=== PATIENT | male | born 1950 | race Caucasian/White ===

== ENCOUNTER 2023-05-07 16:19 | Inpatient (IN) | payer OTHER ==
[~2023-05-07] VITALS: Ht 167.6 cm; Wt 63.5 kg
[2023-05-07] MEDS ORDERED: METRONIDAZOLE 500 MG/NS 100ML 100 ML IV ONE ×2 (16:30→16:46)
[2023-05-07] MEDS ORDERED: CEFTRIAXONE 1 G in IV DEXTROSE 5% 50 ML IV ONE (16:30)
[2023-05-07] MEDS ORDERED: IV NORMAL SALINE 1000 ML BAG IV ONE ×2 (16:30→18:15)
[2023-05-07] MEDS ORDERED: ACETAMINOPHEN ES 500 MG TABLET PO ONE (16:30)
[2023-05-07] MEDS ORDERED: CEFTRIAXONE /D5W 50ML IVPB **ER PYXIS IV ONE (16:31)
[2023-05-07] MEDS ORDERED: ACETAMINOPHEN ES 500 MG TABLET ONE (16:31)
[2023-05-07 16:54] LABS: *BLOOD, URINE 3+ (NEGATIVE); *COLOR,URINE DARK YELLOW (YELLOW); *KETONES,URINE NEGATIVE (NEGATIVE); *UROBILINOGEN,URINE 0.2 E.U./dl (NORMAL); LEUKOCYTE ESTERASE ,URINE 1+ (NEGATIVE); NITRITE, URINE NEGATIVE (NEGATIVE); PH,URINE 5.5 (5.0-8.0); UGLUCOSE NEGATIVE (NEGATIVE)
[2023-05-07 16:55] LABS: BASOPHILS % (AUTO) 0.4 % (0.0-2.0); DIFFERENTIAL COMMENT 0; EOSINOPHILS # (AUTO) 0.1 K/uL (0.0-0.7); EOSINOPHILS % (AUTO) 0.6 % (0.0-7.0); HEMATOCRIT 25.9 % (36.7-47.1); HEMOGLOBIN 8.4 g/dL (12.5-16.3); LYMPHOCYTES # (AUTO) 0.4 K/uL (0.8-4.8); LYMPHOCYTES % (AUTO) 3.5 % (20.5-51.5); MEAN CORPUSCULAR HEMOGLOBIN 29.8 uug (23.8-33.4); MEAN CORPUSCULAR HGB CONC 32 g/dL (32.5-36.3); MEAN CORPUSCULAR VOLUME 92.2 fL (73.0-96.2); MONOCYTES # (AUTO) 0.4 K/uL (0.1-1.30); MONOCYTES % (AUTO) 4.1 % (0.0-11.0); NEUTROPHILS % (AUTO) 91.4 % (38.5-71.5); PLATELET COUNT (AUTO) 235 K/uL (152-348); RED BLOOD CELL COUNT(AUTO) 2.81 MIL/uL (4.06-5.63); RED CELL DISTRIBUTION WIDTH 15.3 % (12.1-16.2); WHITE BLOOD COUNT (AUTO) 10.9 K/uL (3.6-10.2)
[2023-05-07 16:56] LABS: *BILIRUBIN,URIN 1+ (NEGATIVE); *PROTEIN,URINE 3+ (NEGATIVE)
[2023-05-07 17:00] LABS: *CLARITY,URINE CLOUDY (CLEAR)
[2023-05-07 17:18] LABS: ALANINE AMINOTRANSFERASE 38 U/L (16-63); ALKALINE PHOSPHATASE 259 U/L (50-136); ASPARTATE AMINOTRANSFERASE 40 U/L (15-37); BILIRUBIN,DIRECT 0.9 mg/dL (0.0-0.2); BILIRUBIN,TOTAL 1.5 mg/dL (0.2-1.0); CALCIUM 7.9 mg/dL (8.5-10.1); CARBON DIOXIDE 33 mmol/L (21-32); CHLORIDE 103 mmol/L (98-107); CREATININE 2.6 mg/dL (0.6-1.3); GLUCOSE 71 mg/dL (74-106); NT-PRO BNP 4633 pg/mL (0-125); POTASSIUM 4.1 mmol/L (3.5-5.1); SODIUM SERUM 145 mmol/L (136-145); TOTAL PROTEIN, SERUM 6.5 g/dL (6.4-8.2)
[2023-05-07 17:23] LABS: UREA NITROGEN, BLOOD 99 mg/dL (7-18)
[2023-05-07] MEDS ORDERED: AZITHROMYCIN 500MG/ D5W 250ML IVPB **ER PYXIS ONLY IV ONE (17:23)
[2023-05-07 17:24] LABS: ALBUMIN 1.4 g/dL (3.4-5.0)
[2023-05-07 17:28] LABS: BACTERIA,URINE MANY /HPF (NONE SEEN); RBC,URINE TNTC /HPF (0-3); WBC,URINE 50-80 /HPF (0-3)
[2023-05-07] MEDS ORDERED: AZITHROMYCIN IV 500 MG in IV DEXTROSE 5% 250 ML IV ONE (17:30)
[2023-05-07 17:31] LABS: SQUAMOUS EPITHELIAL CELL,UR FEW /HPF (NONE SEEN); YEAST,URINE MANY /HPF (NONE SEEN)
[2023-05-07 18:21] LABS: ABG BASE EXCESS 8.5 mmol/L; ABG HCO3 31.9 mmol/L; ABG PCO2 39.1 mmHg (35.0-45.0); ABG PH 7.529 (7.350-7.450); ABG PO2 47.2 mmHg (75.0-100.0); ABG SITE RIGHT BRACHIAL; ABG TOTAL HEMOGLOBIN 9.6 G/dL (13.5-18.0); COHb 0.3 % (0.5-1.5); MetHb 0.1 % (0.0-1.5); O2Hb 84.9 % (94.0-97.0); VENT MODE ROOM AIR
[2023-05-07] MEDS ORDERED: NOREPINEPHRINE BITARTRATE 8 MG in IV NORMAL SALINE 242 ML IV PRN ×2 (19:00→23:45)
[2023-05-07] MEDS ORDERED: NOREPINEPHRINE BITARTRATE 4 MG/4 ML VIAL IV ONE (19:03)
[2023-05-07] MEDS ORDERED: ADENOSINE 6 MG/2 ML SYR IV ONE (19:17)
[2023-05-07] MEDS ORDERED: EPINEPHRINE 1:10,000 1 MG/10 ML DISP.SYRIN ONE (19:29)
[2023-05-07 21:45] VITALS: O2SAT 98
[2023-05-07 22:00] VITALS: BP 109/81; O2SAT 100
[2023-05-07 23:00] VITALS: BP 102/55; O2SAT 100
[2023-05-07] MEDS ORDERED: REMEDY ESSENTIAL ZINC PASTE 113 GM TP PRN (23:45)
[2023-05-07] MEDS ORDERED: ZOLPIDEM 5 MG TABLET PO PRN (23:45)
[2023-05-07] MEDS ORDERED: MAGNESIUM HYDROXIDE 30 ML LIQUID UDC PO PRN (23:45)
[2023-05-07] MEDS ORDERED: ACETAMINOPHEN 325 MG TABLET PO PRN (23:45)
[2023-05-07] MEDS ORDERED: ONDANSETRON 4 MG/2 ML VIAL IV PRN (23:45)
[2023-05-08] VITALS (51 sets, daily range): BP systolic 89–131; BP diastolic 39–85; TEMP 97–99.8; O2SAT 91–100
[2023-05-08] MEDS ORDERED: VANCOMYCIN IV 1,250 MG in IV DEXTROSE 5% 250 ML IV ONE ×2
[2023-05-08] MEDS ORDERED: IV NORMAL SALINE 250 ML IV PRN (00:01)
[2023-05-08] MEDS ORDERED: VANCOMYCIN IV 200 ML ONE (00:28)
[2023-05-08] MEDS ORDERED: VANCOMYCIN HCL 500 MG VIAL ONE (00:29)
[2023-05-08] MEDS ORDERED: PIPERACILLIN/TAZOBACTAM/D5W 50 ML IV ONE (00:30)
[2023-05-08] MEDS ORDERED: PIPERACILLIN SODIUM/TAZOBACTAM 3.375 G in IV DEXTROSE 5% 50 ML IV SCH ×2 (02:00→10:00)
[2023-05-08 05:27] LABS: THYROID STIMULATING HORMONE 69.548 mIU/mL (0.358-3.740)
[2023-05-08 05:29] LABS: BASOPHILS % (AUTO) 0.4 % (0.0-2.0); EOSINOPHILS # (AUTO) 0.1 K/uL (0.0-0.7); EOSINOPHILS % (AUTO) 0.8 % (0.0-7.0); HEMATOCRIT 25.9 % (36.7-47.1); HEMOGLOBIN 8.4 g/dL (12.5-16.3); LYMPHOCYTES # (AUTO) 0.3 K/uL (0.8-4.8); LYMPHOCYTES % (AUTO) 4.2 % (20.5-51.5); MEAN CORPUSCULAR HEMOGLOBIN 29.8 uug (23.8-33.4); MEAN CORPUSCULAR HGB CONC 33 g/dL (32.5-36.3); MEAN CORPUSCULAR VOLUME 91.6 fL (73.0-96.2); MONOCYTES # (AUTO) 0.5 K/uL (0.1-1.30); MONOCYTES % (AUTO) 6.9 % (0.0-11.0); NEUTROPHILS # (AUTO) 6.8 K/uL (1.8-8.9); NEUTROPHILS % (AUTO) 87.7 % (38.5-71.5); PLATELET COUNT (AUTO) 197 K/uL (152-348); RED BLOOD CELL COUNT(AUTO) 2.83 MIL/uL (4.06-5.63); RED CELL DISTRIBUTION WIDTH 14.9 % (12.1-16.2); WHITE BLOOD COUNT (AUTO) 7.7 K/uL (3.6-10.2)
[2023-05-08 05:36] LABS: CALCIUM 7.3 mg/dL (8.5-10.1); CARBON DIOXIDE 31 mmol/L (21-32); CHLORIDE 107 mmol/L (98-107); CREATININE 2.4 mg/dL (0.6-1.3); GLUCOSE 71 mg/dL (74-106); MAGNESIUM 1.4 mg/dL (1.8-2.4); PHOSPHOROUS 4.7 mg/dL (2.5-4.9); POTASSIUM 3.8 mmol/L (3.5-5.1); SODIUM SERUM 147 mmol/L (136-145)
[2023-05-08 05:40] LABS: UREA NITROGEN, BLOOD 86 mg/dL (7-18)
[2023-05-08 05:41] LABS: DIFFERENTIAL COMMENT 1
[2023-05-08] MEDS ORDERED: PANTOPRAZOLE SODIUM 40 MG VIAL ONE ×2 (08:30→18:29)
[2023-05-08] MEDS ORDERED: HEPARIN SODIUM,PORCINE 5,000 UNITS/ML VIAL ONE (08:31)
[2023-05-08] MEDS: HEPARIN SODIUM,PORCINE 5,000 UNITS/ML VIAL SQ SCH ×2 (08:41→20:43)
[2023-05-08] MEDS ORDERED: NOREPINEPHRINE BITARTRATE 8 MG in IV NORMAL SALINE 242 ML IV PRN (08:45)
[2023-05-08] MEDS ORDERED: MAGNESIUM SULFATE/D5W 300 ML ONE (08:48)
[2023-05-08] MEDS: MAGNESIUM SULFATE/D5W 100 ML IV SCH ×3 (08:48→11:16)
[2023-05-08] MEDS ORDERED: PANTOPRAZOLE SODIUM 40 MG VIAL IV SCH (09:00)
[2023-05-08] MEDS ORDERED: ALBUMIN HUMAN 25% 50 ML ONE ×2 (09:11→16:17)
[2023-05-08] MEDS: ALBUMIN HUMAN 25% 100 ML IV SCH ×3 (09:19→20:39)
[2023-05-08] MEDS ORDERED: PANT40TA49 PO (10:12)
[2023-05-08] MEDS ORDERED: FLUD0.1T PO (10:12)
[2023-05-08] MEDS ORDERED: LEVO125T8 PO (10:12)
[2023-05-08] MEDS ORDERED: POTA500T PO (10:16)
[2023-05-08] MEDS ORDERED: POTA-194 PO (10:16)
[2023-05-08] MEDS: PIPERACILLIN SODIUM/TAZOBACTAM 3.375 G in IV DEXTROSE 5% 100 ML IV SCH ×2 (10:17→18:25)
[2023-05-08] MEDS ORDERED: CHOL5POW PO (10:21)
[2023-05-08] MEDS ORDERED: MIDO10TA PO (10:21)
[2023-05-08] MEDS ORDERED: IPRA3AMP23 IH (10:25)
[2023-05-08] MEDS ORDERED: LOPE2TAB25 PO (10:25)
[2023-05-08] MEDS ORDERED: ONDA4TAB11 PO (10:25)
[2023-05-08] MEDS ORDERED: FUROSEMIDE 20 MG/2 ML VIAL ONE (11:43)
[2023-05-08] MEDS ORDERED: FUROSEMIDE 40 MG/4 ML VIAL IV ONE (12:00)
[2023-05-08] MEDS ORDERED: MIDODRINE HCL 5 MG TABLET PO PRN (12:30)
[2023-05-08] MEDS ORDERED: HYDROCORTISONE SOD SUCCINATE 100 MG/2 ML VIAL IV ONE (13:46)
[2023-05-08] MEDS ORDERED: LEVOTHYROXINE SODIUM 100 MCG VIAL IV ONE (13:46)
[2023-05-08] MEDS: LEVOTHYROXINE SODIUM 100 MCG VIAL IV SCH (13:47)
[2023-05-08] MEDS: HYDROCORTISONE SOD SUCCINATE 100 MG/2 ML VIAL IV SCH ×2 (13:47→21:26)
[2023-05-08] MEDS ORDERED: IPRATROPIUM BROMIDE 0.5 MG/2.5 ML NEBU ONE ×3 (17:05→23:35)
[2023-05-08] MEDS ORDERED: ALBUTEROL SULFATE 1.25 MG/3 ML NEBU ONE ×3 (17:05→23:35)
[2023-05-08] MEDS: IPRATROPIUM BROMIDE 0.5 MG/2.5 ML NEBU NEB SCH ×3 (17:09→23:36)
[2023-05-08] MEDS: ALBUTEROL SULFATE 1.25 MG/3 ML NEBU NEB SCH ×3 (17:09→23:36)
[2023-05-08] MEDS: PANTOPRAZOLE SODIUM 40 MG VIAL IV SCH (18:30)
[2023-05-09] VITALS (24 sets, daily range): BP systolic 103–126; BP diastolic 41–67; TEMP 97.4–98.2; O2SAT 91–100
[2023-05-09] MEDS: PIPERACILLIN SODIUM/TAZOBACTAM 3.375 G in IV DEXTROSE 5% 100 ML IV SCH ×3 (01:11→21:39)
[2023-05-09] MEDS ORDERED: ALBUMIN HUMAN 25% 100 ML ONE (03:00)
[2023-05-09] MEDS: ALBUMIN HUMAN 25% 100 ML IV SCH (03:02)
[2023-05-09] MEDS ORDERED: ALBUTEROL SULFATE 1.25 MG/3 ML NEBU ONE ×6 (03:25→23:12)
[2023-05-09] MEDS ORDERED: IPRATROPIUM BROMIDE 0.5 MG/2.5 ML NEBU ONE ×6 (03:26→23:12)
[2023-05-09] MEDS: IPRATROPIUM BROMIDE 0.5 MG/2.5 ML NEBU NEB SCH ×6 (03:27→23:15)
[2023-05-09] MEDS: ALBUTEROL SULFATE 1.25 MG/3 ML NEBU NEB SCH ×6 (03:27→23:15)
[2023-05-09 05:00] LABS: BASOPHILS % (AUTO) 0.2 % (0.0-2.0); LYMPHOCYTES # (AUTO) 0.2 K/uL (0.8-4.8); LYMPHOCYTES % (AUTO) 4.9 % (20.5-51.5); MEAN CORPUSCULAR HEMOGLOBIN 30.2 uug (23.8-33.4); MEAN CORPUSCULAR HGB CONC 33 g/dL (32.5-36.3); MEAN CORPUSCULAR VOLUME 92.8 fL (73.0-96.2); MONOCYTES # (AUTO) 0.2 K/uL (0.1-1.30); MONOCYTES % (AUTO) 4.6 % (0.0-11.0); NEUTROPHILS # (AUTO) 3.6 K/uL (1.8-8.9); NEUTROPHILS % (AUTO) 90.3 % (38.5-71.5); PLATELET COUNT (AUTO) 153 K/uL (152-348)
[2023-05-09 05:13] LABS: CALCIUM 7.3 mg/dL (8.5-10.1); CARBON DIOXIDE 30 mmol/L (21-32); CHLORIDE 107 mmol/L (98-107); GLUCOSE 144 mg/dL (74-106); MAGNESIUM 2.6 mg/dL (1.8-2.4); PHOSPHOROUS 6.5 mg/dL (2.5-4.9); POTASSIUM 3.6 mmol/L (3.5-5.1); SODIUM SERUM 148 mmol/L (136-145)
[2023-05-09 05:23] LABS: RED BLOOD CELL COUNT(AUTO) 2.06 MIL/uL (4.06-5.63)
[2023-05-09] MEDS ORDERED: HYDROCORTISONE SOD SUCCINATE 100 MG/2 ML VIAL IV ONE ×3 (05:25→21:34)
[2023-05-09 05:26] LABS: DIFFERENTIAL COMMENT 1; HEMOGLOBIN 6.2 g/dL (12.5-16.3)
[2023-05-09 05:27] LABS: HEMATOCRIT 19.2 % (36.7-47.1)
[2023-05-09 05:28] LABS: UREA NITROGEN, BLOOD 89 mg/dL (7-18)
[2023-05-09] MEDS: HYDROCORTISONE SOD SUCCINATE 100 MG/2 ML VIAL IV SCH ×3 (05:28→21:39)
[2023-05-09] MEDS ORDERED: VANCOMYCIN IV 1,000 MG in IV DEXTROSE 5% 250 ML IV ONE (09:00)
[2023-05-09] MEDS ORDERED: FLUDROCORTISONE ACETATE 0.1 MG TABLET PO SCH (09:00)
[2023-05-09] MEDS ORDERED: PANTOPRAZOLE SODIUM 40 MG VIAL ONE ×2 (09:30→16:39)
[2023-05-09] MEDS ORDERED: LEVOTHYROXINE SODIUM 100 MCG VIAL IV ONE (09:30)
[2023-05-09] MEDS: PANTOPRAZOLE SODIUM 40 MG VIAL IV SCH ×2 (09:32→16:45)
[2023-05-09] MEDS: LEVOTHYROXINE SODIUM 100 MCG VIAL IV SCH (09:33)
[2023-05-09 10:22] LABS: BASOPHILS % (AUTO) 0.2 % (0.0-2.0); LYMPHOCYTES # (AUTO) 0.2 K/uL (0.8-4.8); MEAN CORPUSCULAR HEMOGLOBIN 29.8 uug (23.8-33.4); MEAN CORPUSCULAR HGB CONC 32 g/dL (32.5-36.3); MONOCYTES # (AUTO) 0.2 K/uL (0.1-1.30); MONOCYTES % (AUTO) 4.9 % (0.0-11.0); NEUTROPHILS # (AUTO) 3.4 K/uL (1.8-8.9); NEUTROPHILS % (AUTO) 89.9 % (38.5-71.5); PLATELET COUNT (AUTO) 158 K/uL (152-348); RED CELL DISTRIBUTION WIDTH 15.1 % (12.1-16.2); WHITE BLOOD COUNT (AUTO) 3.8 K/uL (3.6-10.2)
[2023-05-09 10:32] LABS: ALBUMIN 2.3 g/dL (3.4-5.0); BILIRUBIN,DIRECT 0.4 mg/dL (0.0-0.2); BILIRUBIN,TOTAL 0.7 mg/dL (0.2-1.0); TOTAL PROTEIN, SERUM 5.9 g/dL (6.4-8.2)
[2023-05-09 10:48] LABS: DIFFERENTIAL COMMENT 1; HEMOGLOBIN 6.5 g/dL (12.5-16.3); RED BLOOD CELL COUNT(AUTO) 2.19 MIL/uL (4.06-5.63)
[2023-05-09 10:57] LABS: HEMATOCRIT 20.2 % (36.7-47.1); LYMPHOCYTES % (MANUAL) 0 % (20-40); NEUTROPHILS % (MANUAL) 0 % (42-75)
[2023-05-09] MEDS ORDERED: FUROSEMIDE 40 MG/4 ML VIAL IV ONE (12:00)
[2023-05-09] MEDS ORDERED: FUROSEMIDE 20 MG/2 ML VIAL ONE ×2 (12:35→12:45)
[2023-05-09 13:07] LABS: *OCCULT BLOOD STOOL NEGATIVE (NEGATIVE)
[2023-05-09 18:23] LABS: BASOPHILS % (AUTO) 0.8 % (0.0-2.0); EOSINOPHILS # (AUTO) 0.1 K/uL (0.0-0.7); EOSINOPHILS % (AUTO) 1.9 % (0.0-7.0); HEMATOCRIT 24.6 % (36.7-47.1); HEMOGLOBIN 7.9 g/dL (12.5-16.3); LYMPHOCYTES # (AUTO) 0.2 K/uL (0.8-4.8); LYMPHOCYTES % (AUTO) 6.5 % (20.5-51.5); MEAN CORPUSCULAR HEMOGLOBIN 29.6 uug (23.8-33.4); MEAN CORPUSCULAR HGB CONC 32 g/dL (32.5-36.3); MEAN CORPUSCULAR VOLUME 92.2 fL (73.0-96.2); MONOCYTES # (AUTO) 0.2 K/uL (0.1-1.30); MONOCYTES % (AUTO) 5.9 % (0.0-11.0); NEUTROPHILS # (AUTO) 3.3 K/uL (1.8-8.9); NEUTROPHILS % (AUTO) 84.9 % (38.5-71.5); PLATELET COUNT (AUTO) 170 K/uL (152-348); RED BLOOD CELL COUNT(AUTO) 2.67 MIL/uL (4.06-5.63); RED CELL DISTRIBUTION WIDTH 16.1 % (12.1-16.2); WHITE BLOOD COUNT (AUTO) 3.8 K/uL (3.6-10.2)
[2023-05-09 18:24] LABS: DIFFERENTIAL COMMENT 1
[2023-05-09] MEDS ORDERED: PIPERACILLIN SODIUM/TAZO 3.375 GM VIAL ONE (21:34)
[2023-05-10] VITALS (7 sets, daily range): BP systolic 115–123; BP diastolic 51–61; TEMP 97–97.4; O2SAT 95–99
[2023-05-10] MEDS ORDERED: ALBUTEROL SULFATE 1.25 MG/3 ML NEBU ONE (03:19)
[2023-05-10] MEDS ORDERED: IPRATROPIUM BROMIDE 0.5 MG/2.5 ML NEBU ONE (03:19)
[2023-05-10] MEDS: ALBUTEROL SULFATE 1.25 MG/3 ML NEBU NEB SCH ×2 (03:22→07:35)
[2023-05-10] MEDS: IPRATROPIUM BROMIDE 0.5 MG/2.5 ML NEBU NEB SCH ×2 (03:22→07:35)
[2023-05-10 04:56] LABS: BASOPHILS % (AUTO) 0.1 % (0.0-2.0); HEMOGLOBIN 8.5 g/dL (12.5-16.3); LYMPHOCYTES # (AUTO) 0.2 K/uL (0.8-4.8); LYMPHOCYTES % (AUTO) 5.7 % (20.5-51.5); MEAN CORPUSCULAR HEMOGLOBIN 29.7 uug (23.8-33.4); MEAN CORPUSCULAR HGB CONC 33 g/dL (32.5-36.3); MEAN CORPUSCULAR VOLUME 90.7 fL (73.0-96.2); MONOCYTES # (AUTO) 0.2 K/uL (0.1-1.30); MONOCYTES % (AUTO) 6.3 % (0.0-11.0); NEUTROPHILS # (AUTO) 2.9 K/uL (1.8-8.9); NEUTROPHILS % (AUTO) 87.9 % (38.5-71.5); PLATELET COUNT (AUTO) 143 K/uL (152-348); RED BLOOD CELL COUNT(AUTO) 2.87 MIL/uL (4.06-5.63); RED CELL DISTRIBUTION WIDTH 16.1 % (12.1-16.2); WHITE BLOOD COUNT (AUTO) 3.3 K/uL (3.6-10.2)
[2023-05-10 05:21] LABS: DIFFERENTIAL COMMENT 1
[2023-05-10] MEDS ORDERED: HYDROCORTISONE SOD SUCCINATE 100 MG/2 ML VIAL IV ONE (05:22)
[2023-05-10] MEDS: HYDROCORTISONE SOD SUCCINATE 100 MG/2 ML VIAL IV SCH (05:25)
[2023-05-10 05:29] LABS: CALCIUM 7.3 mg/dL (8.5-10.1); CARBON DIOXIDE 29 mmol/L (21-32); CHLORIDE 107 mmol/L (98-107); GLUCOSE 158 mg/dL (74-106); MAGNESIUM 2.5 mg/dL (1.8-2.4); PHOSPHOROUS 5.7 mg/dL (2.5-4.9); POTASSIUM 2.9 mmol/L (3.5-5.1); SODIUM SERUM 149 mmol/L (136-145)
[2023-05-10 05:32] LABS: UREA NITROGEN, BLOOD 85 mg/dL (7-18)
== END 2023-05-10 08:05 | disposition short-term general hospital (02) | DRG 871 ==
LOC: ER 16:21 → TRANSITION 22:28
PROVIDERS: ADMIT Nurse Practitioner Acute Care; ATTEND Nurse Practitioner Acute Care
PROC: 30233N1 Transfusion of Nonautologous Red Blood Cells into Peripheral Vein, Percutaneous Approach (ICD-10-PCS; principal; 2023-05-09)
DX: A41.9 Sepsis, unspecified organism (principal); I21.A1 Myocardial infarction type 2; I50.31 Acute diastolic (congestive) heart failure; J18.9 Pneumonia, unspecified organism; J96.01 Acute respiratory failure with hypoxia; L89.154 Pressure ulcer of sacral region, stage 4; R65.21 Severe sepsis with septic shock; I47.1 Supraventricular tachycardia; E27.49 Other adrenocortical insufficiency; N39.0 Urinary tract infection, site not specified; E87.1 Hypo-osmolality and hyponatremia; M84.58XA Pathological fracture in neoplastic disease, other specified site, initial encounter for fracture; K80.10 Calculus of gallbladder with chronic cholecystitis without obstruction; E27.40 Unspecified adrenocortical insufficiency; N17.9 Acute kidney failure, unspecified; T44.4X1A Poisoning by predominantly alpha-adrenoreceptor agonists, accidental (unintentional), initial encounter; Y92.238 Other place in hospital as the place of occurrence of the external cause; Z85.048 Personal history of other malignant neoplasm of rectum, rectosigmoid junction, and anus; Z93.3 Colostomy status; N20.0 Calculus of kidney; E86.0 Dehydration; E88.09 Other disorders of plasma-protein metabolism, not elsewhere classified; E83.42 Hypomagnesemia; D63.8 Anemia in other chronic diseases classified elsewhere; E03.9 Hypothyroidism, unspecified; Z93.6 Other artificial openings of urinary tract status; N28.1 Cyst of kidney, acquired; Z90.49 Acquired absence of other specified parts of digestive tract; R16.1 Splenomegaly, not elsewhere classified; D64.9 Anemia, unspecified; R80.9 Proteinuria, unspecified; I95.89 Other hypotension; N18.9 Chronic kidney disease, unspecified; R79.1 Abnormal coagulation profile
CPT/HCPCS: 36415; 36600; 70030-TC; 71045; 76770; 82803; 83605; 83735; 84100; 84443; 84481; 84484; 85025; 85730; 86850; 86900; 86901; 86920; 87040; 93005; 93307; 94640; 94664; A4663; A6209; A6213; A9150; C9113; G0378; J0153; J0171; J0456; J0696; J1644; J1720; J1940; J2543; J3370; J3475; J3490; J3590; J7040; J7050; P9016; P9047